=== PATIENT | female | born 1960 | race American Indian/Alaskan Native ===

== ENCOUNTER 2017-01-26 14:25 | Emergency (ER) | payer OTHER ==
[2017-01-26] MEDS ORDERED: MOTRIN PO ONE (17:26)
--- NOTE | 2017-01-26 17:35 | Emergency Department Report ---
ED Lower Extremity HPI - General Chief Complaint: Extremity Injury, Lower Stated Complaint: RT ANKLE PAIN Time Seen by Provider: 01/26/17 16:43 Source: patient, family Mode of arrival: Ambulatory Limitations: No Limitations - History of Present Illness Initial Comments: 57-year-old female past medical history none presents with complaint of right ankle pain status post accidentally tripping and falling while gardening in her backyard. Patient states that she accidentally stepped into a hole in the ground and her backyard and felt that she inverted her ankle. Patient denies any lacerations patient is ambulatory but states she has significant pain and right lateral ankle. Patient has visible swelling at distal right lateral ankle. Patient is accompanied by her . States that bearing weight on ankle is painful. Denies any other injuries no loss of consciousness denies any head trauma. MD Complaint: ankle injury, foot injury -: This morning Injury: Ankle: Right, Foot: Right Type of Injury: blunt Severity: moderate Severity scale (0 -10): 5 Improves With: nothing Worsens With: weight bearing Associated Symptoms: swelling, numbness, able to partially bear weight Treatments Prior to Arrival: cold therapy - Related Data Previous Rx's Medication Instructions Recorded Last Taken Type Naproxen [Naprosyn TAB] 500 mg PO BID PRN #25 tablet 01/26/17 Unknown Rx Allergies Allergy/AdvReac Type Severity Reaction Status Date / Time No Known Allergies Allergy Verified 01/26/17 14:40 ED Review of Systems ROS: Stated complaint: RT ANKLE PAIN Other details as noted in HPI Constitutional: denies: chills, fever Eyes: denies: eye pain, eye discharge, vision change ENT: denies: ear pain, throat pain Respiratory: denies: cough, shortness of breath, wheezing Cardiovascular: denies: chest pain, palpitations Endocrine: no symptoms reported Gastrointestinal: denies: abdominal pain, nausea, diarrhea Genitourinary: denies: urgency, dysuria, discharge Musculoskeletal: as per HPI, joint swelling, arthralgia. denies: back pain Skin: denies: rash, lesions Neurological: denies: headache, weakness, paresthesias Psychiatric: denies: anxiety, depression Hematological/Lymphatic: denies: easy bleeding, easy bruising ED Past Medical Hx - Past Medical History Previous Medical History?: No - Surgical History Past Surgical History?: No - Social History Smoking Status: Never Smoker Substance Use Type: None - Medications Home Medications: Home Medications Medication Instructions Recorded Confirmed Last Taken Type Naproxen [Naprosyn TAB] 500 mg PO BID PRN #25 tablet 01/26/17 Unknown Rx ED Physical Exam - General Limitations: No Limitations General appearance: alert, in no apparent distress - Head Head exam: Present: atraumatic, normocephalic - Eye Eye exam: Present: normal appearance, PERRL, EOMI - ENT ENT exam: Present: mucous membranes moist - Neck Neck exam: Present: normal inspection, full ROM - Respiratory Respiratory exam: Present: normal lung sounds bilaterally. Absent: respiratory distress - Cardiovascular Cardiovascular Exam: Present: regular rate, normal rhythm. Absent: systolic murmur, diastolic murmur, rubs, gallop - GI/Abdominal GI/Abdominal exam: Present: soft, normal bowel sounds - Extremities Exam Extremities exam: Present: normal inspection - Expanded Lower Extremity Exam Left Upper Leg exam: Present: normal inspection, full ROM Knee exam: Present: normal inspection, full ROM Lower Leg exam: Present: normal inspection, full ROM Ankle exam: Present: normal inspection, full ROM (dorsi and plantar flexion are intact but painful to the patient), swelling (patient has swelling at right lateral malleolus and pain on palpation) Foot/Toe exam: Present: normal inspection, full ROM, swelling Neuro vascular tendon exam: Present: no vascular compromise Gait: Positive: antalgic (patient has antalgic gait secondary to pain) 1 - Pain on palpation and swelling - Back Exam Back exam: Present: normal inspection - Neurological Exam Neurological exam: Present: alert, oriented X3, CN II-XII intact - Psychiatric Psychiatric exam: Present: normal affect, normal mood - Skin Skin exam: Present: warm, dry, intact, normal color. Absent: rash ED Course Vital Signs 01/26/17 14:40 Temperature 98.5 F Pulse Rate 92 H Respiratory 16 Rate Blood Pressure 147/86 O2 Sat by Pulse 98 Oximetry ED Lower Extremity MDM - Medical Decision Making A/P: Right ankle sprain 1-crutches when necessary, nonweightbearing for now, NSAIDs for now 2-follow-up with orthopedics 3- x-rays show no fractures, foot neurovascularly intact Critical care attestation.: If time is entered above; I have spent that time in minutes in the direct care of this critically ill patient, excluding procedure time. ED Disposition Clinical Impression: Ankle sprain Qualifiers: Encounter type: initial encounter Involved ligament of ankle: tibiofibular ligament Laterality: right Qualified Code(s): S93.431A - Sprain of tibiofibular ligament of right ankle, initial encounter Disposition: TO HOME OR SELFCARE Is pt being admited?: No Does the pt Need Aspirin: No Condition: Stable Instructions: Ankle Sprain (ED), Ankle Stirrup Splint (ED), RICE Therapy (ED) Prescriptions: Naproxen [Naprosyn TAB] 500 mg PO BID PRN #25 tablet PRN Reason: Pain Referrals: MARISOL BELLA MD [Staff Physician] - 3-5 Days Forms: Work/School Release Form(ED) Time of Disposition: 20:22
[2017-01-26] MEDS ORDERED: NORCO 5/325 PO ONE ×2 (17:37→20:42)
--- NOTE | 2017-01-26 20:19 | XRay Report ---
FINAL REPORT PROCEDURE: XR ANKLE 3+V RT TECHNIQUE: Right ankle, three views HISTORY: pain COMPARISON: No prior studies are available for comparison. FINDINGS: No acute fracture or dislocation is seen. No focal osseous lesions are identified. Ankle mortise and talar dome are intact. Hallux valgus. IMPRESSION: No acute fracture or dislocation is identified
--- NOTE | 2017-01-26 20:20 | XRay Report ---
FINAL REPORT PROCEDURE: XR FOOT 3+V RT TECHNIQUE: Right foot, three views HISTORY: RIGHT FOOT PAIN; possible 5th metatarsal fracture COMPARISON: No prior studies are available for comparison. FINDINGS: No acute fracture or dislocation is seen. No focal osseous lesions are seen. There are degenerative changes of the midfoot. Hallux valgus. IMPRESSION: No acute fracture is identified.
[2017-01-26 21:45] VITALS: BP 128/78
== END 2017-01-26 21:44 | disposition home or self-care (01) ==
LOC: ED 14:25
DX: S93.401A Sprain of unspecified ligament of right ankle, initial encounter (principal); W01.0XXA Fall on same level from slipping, tripping and stumbling without subsequent striking against object, initial encounter; Y93.H2 Activity, gardening and landscaping; Y92.096 Garden or yard of other non-institutional residence as the place of occurrence of the external cause; Y99.8 Other external cause status
CPT/HCPCS: 99283